=== PATIENT | female | born 1970 | race Caucasian/White ===

== ENCOUNTER → 2017-02-14 | Outpatient (CLI) | payer BC ==
--- NOTE | 2017-02-14 16:40 | MR ---
EXAMINATION TYPE: MR brain wo/w con DATE OF EXAM: 02/14/2017 COMPARISON: NONE HISTORY: Ocular pain, left eye, headaches CONTRAST: Performed utilizing 10 mL intravenous MultiHance gadolinium contrast. TECHNIQUE: Multiplanar, multiecho imaging on a 3.0 Kayla magnet is performed through the brain. Stud y is performed within 24 hours of arrival to the hospital. The craniovertebral junction is normal. The pituitary is normal. Diffusion-weighted imaging is performed. No abnormal hyperintensity is present to suggest an acute i ntracranial infarct or acute ischemic change. There are couple of punctate hyperintensities on T2-weighted sequences within the deep white matter. This is not out of proportion to the patient age. This is nonspecific. Differential could include richar rovascular ischemic change, gliosis associated with migraine headaches, vasculitis, Lyme disease. The stenotic involve the occipital lobes of the coronal radiata. The largest is within the anterior righ t basal ganglion measuring approximately 0.3 cm in diameter. No corresponding abnormalities identifie d on the diffusion weighted imaging to suggest acute ischemic changes. Optic nerves appear normal. Gl obes are symmetrical. Intraconal and extraconal fat appears unremarkable. Ventricles and sulci are appropriate for the patient age. Postcontrast imaging is reviewed. Normal vascular contrast is present. Suspicious enhancement is not identified. No enhancement of the orbits is evident. Optic chiasm is visualized. Postcontrast imaging appears unremarkable. The pituitary stalk is in the midline. IMPRESSIONS: 1. MRI brain essentially within normal limits. There are couple of punctate periventricular white mat ter changes not out of proportion to the patient age.
== END | disposition home or self-care (01) ==
LOC: RADMRIMAIN 13:43
PROVIDERS: ATTEND Family Medicine
DX: H57.12 Ocular pain, left eye (principal); R51 Headache
CPT/HCPCS: 70553; A9577

== ENCOUNTER → 2017-10-21 | Outpatient (CLI) | payer OTHER ==
--- NOTE | 2017-10-23 14:33 | MM ---
Reason for exam: screening (asymptomatic). Last mammogram was performed 1 year and 9 months ago. History: Excisional biopsy of the left breast, December 2005. Excisional biopsy of the left breast, December 2004. Took hormonal contraceptives for 10 years. Physical Findings: A clinical breast exam by your physician is recommended on an annual basis and results should be correlated with mammographic findings. MG Screening Mammo w CAD Bilateral CC and MLO view(s) were taken. Prior study comparison: January 12, 2016, bilateral MG screening mammo w CAD. October 11, 2014, bilateral MG screening mammo w CAD. The breast tissue is heterogeneously dense. This may lower the sensitivity of mammography. There is chronic nodularity in the left breast. No significant changes when compared with prior studies. ASSESSMENT: Benign, BI-RAD 2 RECOMMENDATION: Routine screening mammogram of both breasts in 1 year.
== END | disposition home or self-care (01) ==
LOC: RADMAMWWP 16:16
PROVIDERS: ATTEND Obstetrics & Gynecology
DX: Z12.31 Encounter for screening mammogram for malignant neoplasm of breast (principal)
CPT/HCPCS: 77067

== ENCOUNTER 2019-01-14 09:04 | Day surgery (SDC) | payer OTHER ==
[2019-01-12 17:50] VITALS: BMI 22.3
[~2019-01-14 09:04] MED LIST: LACTATED RINGERS 1,000 ML IV SCH; LIDOCAINE 1% 20 ML VIAL (10MG/ML) FOR IV START INTRADERMA PRN
[2019-01-14] MEDS ORDERED: MIDAZOLAM (PF) 2 MG/2 ML VIAL IVP ONE (09:34)
[2019-01-14 09:35] VITALS: TEMP 97.7
--- NOTE | 2019-01-14 09:49 | P.GSHP ---
History of Present Illness H&P Date: 01/14/19 Chief Complaint: Screening colonoscopy This is a 48-year-old female who presents today for screening colonoscopy. Patient denies any significant GI complaints. Past Medical History Past Medical History: Asthma, Eye Disorder, GERD/Reflux, Hypertension Additional Past Medical History / Comment(s): seizure as child, occular migraines, "borderline BP"-no Rx, occ. irregular heart beat, arthritis in back, starting of glaucoma History of Any Multi-Drug Resistant Organisms: None Reported Past Surgical History: Appendectomy, Breast Surgery Additional Past Surgical History / Comment(s): left breast biopsy x 2 Past Anesthesia/Blood Transfusion Reactions: Motion Sickness Smoking Status: Former smoker - Past Family History Mother Family Medical History: No Reported History Medications and Allergies Home Medications Medication Instructions Recorded Confirmed Type Omeprazole Magnesium [PriLOSEC OTC] 20 mg PO DAILY 01/12/19 01/14/19 History Allergies Allergy/AdvReac Type Severity Reaction Status Date / Time No Known Allergies Allergy Verified 01/14/19 09:17 Surgical - Exam Vital Signs Temp Pulse Resp BP Pulse Ox 97.7 F 99 17 172/94 98 01/14/19 09:34 01/14/19 09:34 01/14/19 09:34 01/14/19 09:34 01/14/19 09:34 - General well developed, well nourished, no distress - Eyes PERRL - ENT normal pinna - Neck no masses - Respiratory normal expansion - Cardiovascular Rhythm: regular - Abdomen Abdomen: soft, non tender Assessment and Plan Assessment: We'll perform screening colonoscopy.
[2019-01-14] MEDS ORDERED: PROPOFOL 10 MG/ML 20 ML VIAL IV ONE (09:51)
[2019-01-14] MEDS ORDERED: LIDOCAINE 1% INJ 10MG/ML (20 ML MDV) ONE (09:51)
--- NOTE | 2019-01-14 10:07 | P.OP ---
Date of Procedure: 01/14/19 Preoperative Diagnosis: Screening colonoscopy Postoperative Diagnosis: Normal colon Procedure(s) Performed: Colonoscopy Anesthesia: MAC Surgeon: Lauro Boles Pathology: none sent Condition: stable Disposition: PACU Description of Procedure: PROCEDURE: The patient was placed on the endoscopy table in the lateral position. Digital rectal examination was performed which revealed no abnormalities. Flexible colonoscope was then placed in the patient's anus and passed throughout the entire colon. The ileocecal valve was visualized. The cecum, ascending, transverse, descending and sigmoid colon were normal. The rectum was normal as well. There were no masses, polyps or diverticula noted in the entire colon. SUMMARY OF FINDINGS: Normal colonoscopy.
[2019-01-14 10:14] VITALS: RESP 16
[2019-01-14 10:35] VITALS: BP 121/77; PULSE 66
== END 2019-01-14 10:43 | disposition home or self-care (01) ==
LOC: ORWHC2ENDO 09:04
PROVIDERS: ATTEND Surgery
DX: Z12.11 Encounter for screening for malignant neoplasm of colon (principal); Z87.891 Personal history of nicotine dependence; K21.9 Gastro-esophageal reflux disease without esophagitis; Z79.899 Other long term (current) drug therapy
CPT/HCPCS: 81025; J2001; J2704; J2250; G0121

== ENCOUNTER → 2019-12-27 | Outpatient (CLI) | payer OTHER ==
--- NOTE | 2019-12-28 08:31 | MM ---
Reason for exam: screening (asymptomatic). Last mammogram was performed 2 years and 2 months ago. History: Excisional biopsy of the left breast, December 2005. Excisional biopsy of the left breast, December 2004. Took hormonal contraceptives for 10 years. Physical Findings: A clinical breast exam by your physician is recommended on an annual basis and results should be correlated with mammographic findings. MG Screening Mammo w CAD Bilateral CC and MLO view(s) were taken. Prior study comparison: October 21, 2017, bilateral MG screening mammo w CAD. January 12, 2016, bilateral MG screening mammo w CAD. The breast tissue is heterogeneously dense. This may lower the sensitivity of mammography. There is no discrete abnormality. No significant changes when compared with prior studies. ASSESSMENT: Negative, BI-RAD 1 RECOMMENDATION: Routine screening mammogram of both breasts in 1 year.
== END | disposition home or self-care (01) ==
LOC: RADMAMWWP 07:10
PROVIDERS: ATTEND Family Medicine
DX: Z12.31 Encounter for screening mammogram for malignant neoplasm of breast (principal)
CPT/HCPCS: 77067